=== PATIENT | male | born 1980 | race Caucasian/White ===

== ENCOUNTER 2025-02-04 06:16 | Day surgery (SDC) | payer OTHER, SELFPAY ==
[2025-02-04] VITALS (11 sets, daily range): BP systolic 105–122; BP diastolic 68–82; PULSE 46–65; RESP 16; TEMP 36.1–36.9; O2SAT 93–98; BMI 24.1
[2025-02-04] MEDS: LACTATED RINGERS 1000 ML 1,000 ML 100 ML IV (06:15)
[2025-02-04] MEDS: SODIUM CHLORIDE 0.9 % (FLUSH) 10 ML SYRINGE IVF (06:31)
[2025-02-04] MEDS: BUPIVACAINE 0.25% 30 ML INJECTION (08:04)
--- NOTE | 2025-02-04 08:21 | P.ORPRC_ITS ---
Procedure Note Date of procedure: 02/04/25 Procedure: PREOPERATIVE DIAGNOSIS: Right knee medial meniscus tear POSTOPERATIVE DIAGNOSIS: Right knee medial meniscus tear NAME OF OPERATION: Right knee arthroscopic partial medial meniscectomy SURGEON: Scar Sanchez MD MANAGER BUSINESS DEVELOPMENT HOSPICE: Shanti Meehan PA-C ANESTHESIA: Spinal ESTIMATED BLOOD LOSS: 0 mL COMPLICATIONS: None SPECIMENS: None DRAINS: None PREOPERATIVE ANTIBIOTICS: Ancef 2 gram INDICATIONS: The patient is a 44-year-old with a history of right knee medial pain. MRI scan is consistent with a medial meniscus tear. Despite appropriate nonoperative management, including activity modification, antiinflammatories, [id number] pain medication, bracing, physical therapy, and injections they continue to have pain and disability. Operative intervention was offered. The risks, benefits and expected outcomes were discussed in detail. These included but were not limited to: Infection, bleeding, injury to blood vessel or nerve, venous thromboembolism. All questions were answered to their satisfaction. PROCEDURE: Spinal anesthesia was administered. The patient was placed supine on the operating room table. The right lower extremity was prepped and draped in the usual sterile fashion. The limb was exsanguinated with the Mark bandage. The pneumatic tourniquet was inflated to 225 mmHg. A standard anterolateral portal was established. The arthroscope was introduced. The working portal was established anteromedially. Diagnostic arthroscopy was performed with findings as follows: The suprapatellar pouch is normal. Articular surface on the patella is normal. Articular surface on the trochlea is normal. The medial gutter is normal. The medial compartment shows normal articular cartilage on the medial femoral condyle and medial tibial plateau. The medial meniscus has a complex degen erative tear of the posterior horn. This primarily consists of horizontal cleavage tearing of the undersurface. The root is intact. There is a superficial anteriorly based flap at the midbody, which is displaced into the medial gutter. The notch shows the ACL to be intact. The lateral compartment shows normal articular cartilage on the lateral femoral condyle and lateral tibial plateau. The lateral meniscus is normal. The lateral gutter is normal. The undersurface of the posterior horn of the medial meniscus was debrided to a stable base using mary through both portals. The unstable flap at the midbody was resected through the anteromedial portal with the shaver. Arthroscopic instruments were removed, the portal sites were Steri-Stripped closed, the knee was infiltrated with 30 mL of 0.25% Marcaine without epinephrine. A dry dressing was applied, the tourniquet was released. Sponge and needle counts were correct x 2. The patient tolerated the procedure well. There were no apparent complications. They were carefully transferred to the hospital bed and taken to the postanesthesia care unit in satisfactory condition. PLAN: The patient will be discharged to home. They may weightbear as tolerates. Range of motion will be unrestricted. They will follow up in the office next week for a wound check.
--- NOTE | 2025-02-04 08:24 | P.ANES_ITS ---
Anesthesia Charges Start Date/Time Anesthesia Start Date: 02/04/25 Anesthesia Start Time: 07:27 Stop Date/Time Anesthesia Stop Date: 02/04/25 Anesthesia Stop Time: 08:28 Coding CPT Codes CPT Codes: ANESTH KNEE JOINT SURGERY - 03647 ([id number]) P2 - PATIENT W/MILD SYST DISEASE, QK - FORWARD AIR CONTROLLER/AIR OFFICER 2-4 CNCRNT ANES PROC, QX - DIGITAL ACCOUNT DIRECTOR SVC W/ MD MED DIRECTION
--- NOTE | 2025-02-04 08:24 | W.ANESCHARGE ---
Anesthesia Charges Start Date/Time Anesthesia Start Date: 02/04/25 Anesthesia Start Time: 07:27 Stop Date/Time Anesthesia Stop Date: 02/04/25 Anesthesia Stop Time: 08:28 Coding CPT Codes CPT Codes: ANESTH KNEE JOINT SURGERY - [id number] ([id number]) P2 - PATIENT W/MILD SYST DISEASE, QK - ELECTRIC LOCOMOTIVE CRANE OPERATOR 2-4 CNCRNT ANES PROC, QX - ADMINISTRATIVE UNDERWRITER SVC W/ MD MED DIRECTION
[2025-02-04] MEDS: ACETAMINOPHEN 500 MG TABLET 1000 MG PO (09:19)
--- NOTE | 2025-02-04 09:27 | P.ANES_ITS ---
Anesthesia Charges Start Date/Time Anesthesia Start Date: 02/04/25 Anesthesia Start Time: 07:27 Stop Date/Time Anesthesia Stop Date: 02/04/25 Anesthesia Stop Time: 08:28 Coding CPT Codes CPT Codes: ANESTH KNEE JOINT SURGERY - [id number] ([id number]) P2 - PATIENT W/MILD SYST DISEASE, QK - AUTO PHONE INSTALLER 2-4 CNCRNT ANES PROC, QX - FISH AND WILDLIFE WARDEN SVC W/ MD MED DIRECTION
--- NOTE | 2025-02-04 09:27 | W.ANESCHARGE ---
Anesthesia Charges Start Date/Time Anesthesia Start Date: 02/04/25 Anesthesia Start Time: 07:27 Stop Date/Time Anesthesia Stop Date: 02/04/25 Anesthesia Stop Time: 08:28 Coding CPT Codes CPT Codes: ANESTH KNEE JOINT SURGERY - 79953 ([id number]) P2 - PATIENT W/MILD SYST DISEASE, QK - ENROLLMENT REPRESENTATIVE 2-4 CNCRNT ANES PROC, QX - HOTEL OPERATIONS MANAGER SVC W/ MD MED DIRECTION
== END 2025-02-04 10:13 | disposition home or self-care (01) ==
LOC: OR 06:18
PROVIDERS: PCP Student in an Organized Health Care Education/Training Program; Visit Provider Orthopaedic Surgery
PROC: (CPT 29870; principal; 2025-02-04 07:30)
DX: S83.241A Other tear of medial meniscus, current injury, right knee, initial encounter (principal)
CPT/HCPCS: 29881; 01400; A9270; J0665; J0690; J1100; J2704; J2710; J3010; J7120

== ENCOUNTER 2025-03-04 07:53 | Day surgery (SDC) | payer OTHER, SELFPAY ==
[2025-03-04] VITALS (10 sets, daily range): BP systolic 109–126; BP diastolic 66–80; PULSE 48–64; RESP 16–20; TEMP 36.3–37; O2SAT 94–100; BMI 25.7
[2025-03-04] MEDS: SODIUM CHLORIDE 0.9 % (FLUSH) 10 ML SYRINGE IVF (08:20)
[2025-03-04] MEDS: LACTATED RINGERS 1000 ML 1,000 ML 100 ML IV ×2 (08:25→11:30)
--- NOTE | 2025-03-04 10:21 | W.PM.H&PU ---
History & Physical Update History & Physical Update H&P Reviewed and patient assessed: No changes noted
--- NOTE | 2025-03-04 10:21 | PM.ORPRC ---
Procedure Note Date of procedure: 03/04/25 Procedure: PREOPERATIVE DIAGNOSIS: 1. Left knee medial meniscus tear POSTOPERATIVE DIAGNOSIS: 1. Left knee medial meniscus tear PROCEDURE: 1. Left knee arthroscopic partial medial meniscectomy SURGEON: Tk Chaney M.D. IMMERSION METAL CLEANER: Emi Venegas P.A.-C. Of note, an per diem physical therapist assistant was critical for this case to aid in patient positioning, knee manipulation, instrument exchange, and closure. ANESTHESIA: Spinal EBL: 5 mL TOURNIQUET: Not utilized COMPLICATIONS: None INDICATIONS: Franklin is a 44-year-old male with medial sided left knee pain that did not improve with conservative treatment. MRI revealed complex tear of the posterior horn and body of the medial meniscus. He was subsequently offered surgical intervention consisting of left knee arthroscopic partial medial meniscectomy for improvement in his symptoms. Prior to surgery, the risks and benefits of the procedure were discussed with patient, all questions were answered, and informed consent was obtained. FINDINGS: Examination under anesthesia revealed full range of motion. Knee was stable to varus and valgus stress. Patric's posterior drawer test were negative. Arthroscopic examination revealed complex tear involving the posterior horn and body of the medial meniscus. There was a complex, incomplete radial tear involving the meniscal body with horizontal cleavage tear involving the posterior horn and extending into the meniscal body. Anterior and posterior meniscal roots were intact. Lateral meniscus was intact. ACL PCL were intact. 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 Cartilage was otherwise normal. DESCRIPTION OF PROCEDURE: After a thorough discussion of risks, benefits, and alternatives, the patient was brought to the operating room and placed on the operating table. Spinal anesthesia was administered by anesthesia staff. Patient was then rotated supine position. He was was then given 2 g IV Ancef preoperatively for prophylaxis. A tourniquet was placed on patient's left thigh but was not used during course of procedure. The left thigh was placed in leg salas, and left lower extremity was prepped and draped in the appropriate sterile fashion. A surgical time-out was performed confirming patient identity, surgical site, and procedure. Anterolateral and anteromedial portal sites were injected with 0.25% Marcaine with epinephrine. Anterolateral portal was established with an 11 blade. Antereromedial portal was then established after localization with spinal needle. Diagnostic arthroscopy was performed with findings as noted above. Following the diagnostic arthroscopy, partial meniscectomy was performed using combination of arthroscopic biters and motorized shaver. Following this, the meniscus was re-probed and found to be stable. Approximately 25 % of the overall meniscus was resected. This included a portion of the undersurface of the posterior horn and approximately 50% of the meniscal body., At this stage, the shaver was reinserted into the suprapatellar pouch and all remaining meniscal debris was evacuated. Instruments were removed, excess fluid was drained, and portal sites were closed with 4-0 Monocryl and Steri-Strips. Knee joint was injected with 7 mL of 0.25% Marcaine. Sterile dressings were applied. The patient was awoken from anesthesia and transferred to the PACU in stable condition. PLAN: 1. Weightbear as tolerated left lower extremity. Crutches as needed for comfort. 2. Ice, elevation, acetaminophen and/or ibuprofen as needed for pain control. Oxycodone as needed for breakthrough pain. 3. Knee range of motion and quad sets/straight leg raise regularly 4. Follow up in orthopedic clinic in 1-2 weeks for a wound check.
--- NOTE | 2025-03-04 10:36 | P.ANES_ITS ---
Anesthesia Charges Start Date/Time Anesthesia Start Date: 03/04/25 Anesthesia Start Time: 10:27 Stop Date/Time Anesthesia Stop Date: 03/04/25 Anesthesia Stop Time: 11:40 Coding CPT Codes CPT Codes: ANESTH KNEE JOINT SURGERY - 86245 ([id number]) P2 - PATIENT W/MILD SYST DISEASE, QK - [employer] ADVISOR 2-4 CNCRNT ANES PROC, QX - STANDPIPE TENDER SVC W/ MD MED DIRECTION
--- NOTE | 2025-03-04 10:36 | W.ANESCHARGE ---
Anesthesia Charges Start Date/Time Anesthesia Start Date: 03/04/25 Anesthesia Start Time: 10:27 Stop Date/Time Anesthesia Stop Date: 03/04/25 Anesthesia Stop Time: 11:40 Coding CPT Codes CPT Codes: ANESTH KNEE JOINT SURGERY - 21783 ([id number]) P2 - PATIENT W/MILD SYST DISEASE, QK - STAFF INTERPRETER 2-4 CNCRNT ANES PROC, QX - RAILROAD WORKER SVC W/ MD MED DIRECTION
[2025-03-04] MEDS: BUPIVACAINE 0.25 %/EPI 1:200K 30 ml INJECTION (10:45)
--- NOTE | 2025-03-04 11:42 | P.ANES_ITS ---
Anesthesia Charges Start Date/Time Anesthesia Start Date: 03/04/25 Anesthesia Start Time: 10:27 Stop Date/Time Anesthesia Stop Date: 03/04/25 Anesthesia Stop Time: 11:40 Coding CPT Codes CPT Codes: ANESTH KNEE JOINT SURGERY - 39062 ([id number]) P2 - PATIENT W/MILD SYST DISEASE, QK - BLANKET MAKER 2-4 CNCRNT ANES PROC
--- NOTE | 2025-03-04 11:42 | W.ANESCHARGE ---
Anesthesia Charges Start Date/Time Anesthesia Start Date: 03/04/25 Anesthesia Start Time: 10:27 Stop Date/Time Anesthesia Stop Date: 03/04/25 Anesthesia Stop Time: 11:40 Coding CPT Codes CPT Codes: ANESTH KNEE JOINT SURGERY - 19851 ([id number]) P2 - PATIENT W/MILD SYST DISEASE, QK - POWDER MIXER 2-4 CNCRNT ANES PROC
[2025-03-04] MEDS: IBUPROFEN 200 MG TABLET 400 MG PO (12:22)
== END 2025-03-04 13:17 | disposition home or self-care (01) ==
PROVIDERS: PCP Student in an Organized Health Care Education/Training Program; Visit Provider Orthopaedic Surgery
PROC: (CPT 29870; principal; 2025-03-04 10:15)
DX: S83.232A Complex tear of medial meniscus, current injury, left knee, initial encounter (principal); M22.42 Chondromalacia patellae, left knee
CPT/HCPCS: 29881; 01400; A9270; J0690; J1100; J2250; J2405; J2704; J3010; J7120